=== PATIENT | male | born 1950 | race Hispanic/Latino ===

== ENCOUNTER → 2018-02-28 | Day surgery (SDC) | payer BC, MEDICARE ==
[2018-02-21 15:01] LABS: BASOPHILS % 0.4 % (0.0-1.0); EOSINOPHILS # (AUTO) 0.2 (0.0-0.4); EOSINOPHILS % 4.3 % (0.0-6.0); HEMATOCRIT 37.6 % (38.2-49.6); HEMOGLOBIN 12.6 g/dL (14.0-18.0); LYMPHOCYTES # (AUTO) 1.3 (1.0-3.2); LYMPHOCYTES % 23.6 % (18.0-39.1); MEAN CORPUSCULAR HEMOGLOBIN 32.1 pg (28-32); MEAN CORPUSCULAR HGB CONC 33.5 g/dL (31-35); MEAN CORPUSCULAR VOLUME 95.9 fL (81-99); MONOCYTES # (AUTO) 0.7 (0.2-0.8); MONOCYTES % 12.1 % (4.4-11.3); NEUTROPHILS # (AUTO) 3.3 (2.1-6.9); NEUTROPHILS % 59.2 % (38.7-80.0); PLATELET COUNT 157 x10e3/uL (140-360); RED BLOOD COUNT 3.92 x10e6/uL (4.3-5.7); RED CELL DISTRIBUTION WIDTH 12.3 % (11.7-14.4)
[~2018-02-28] MED LIST: ASPIRIN BUFFER325 M1 PO; FENTANYL CITRATE/PF 100MCG/2 ML INJ ONE; GLIPIZIDE ER2.5 MG PO; GLUCAGON FOR INJ 1 MG VIAL ONE; HYOSCYAMINE SULFATE 0.5 MG/ML INJ ONE; MIDAZOLAM HCL 2 MG/2 ML VIAL ONE; PROPOFOL IV EMULSION 10 MG/ML 50 ML VIAL ONE; QUINAPRIL PO; Z.0.LIPITOR40 MG PO; Z.0.METFORMIN HCL100; Z.0.METOPROLOL SUCC5 PO
[2018-02-28 12:31] VITALS: BP 102/65
--- NOTE | 2018-02-28 13:23 | Operative Report ---
DATE OF PROCEDURE: February 28, 2018 REFERRING PHYSICIAN: Dr. Gerardo Mccoy PROCEDURE PERFORMED: Colonoscopy and polypectomy. INDICATIONS FOR COLONOSCOPY: Surveillance colonoscopy, personal history of colon polyps, mother and brother with colon cancer. MEDICATION: Patient was done under MAC. Please see anesthesiologist's note. PROCEDURE: With the patient in the left lateral decubitus position, the flexible fiberoptic Olympus colonoscope was advanced all the way to the cecum. There was some diverticular disease in the cecum. The scope was then withdrawn slowly. Mucosa overlying the ascending and transverse grossly appeared to be within normal limits. Two polyps were hot biopsied from the descending colon. The sigmoid appeared to be within normal limits. One polyp was hot biopsied from the rectum. The scope was then retroflexed into the distal rectum. Small internal hemorrhoids were noted, none of which was actively bleeding. The scope was then straightened out. It was subsequently withdrawn. Patient tolerated the procedure well. IMPRESSION 1. Cecal diverticulosis. 2. Descending colon polyps x2, hot biopsied. 3. Rectal polyp x1, hot biopsied. 4. Internal hemorrhoids, none actively bleeding. PLAN: Follow up histology. Initiate high-fiber, low-fat diet. Initiate high-fiber supplement. Patient might benefit from a followup colonoscopy in 1 to 2 years considering his strong family history. Job#: [id number] cc:GERARDO MCCOY MD
== END | disposition home or self-care (01) ==
LOC: OR 08:20
PROVIDERS: ATTEND Internal Medicine Gastroenterology
DX: Z09 Encounter for follow-up examination after completed treatment for conditions other than malignant neoplasm (principal); K63.5 Polyp of colon; K62.1 Rectal polyp; K57.30 Diverticulosis of large intestine without perforation or abscess without bleeding; K64.8 Other hemorrhoids; I25.810 Atherosclerosis of coronary artery bypass graft(s) without angina pectoris; I25.2 Old myocardial infarction; I11.0 Hypertensive heart disease with heart failure; I50.9 Heart failure, unspecified; E11.9 Type 2 diabetes mellitus without complications; R00.1 Bradycardia, unspecified; E78.00 Pure hypercholesterolemia, unspecified; F45.8 Other somatoform disorders; Z01.810 Encounter for preprocedural cardiovascular examination; Z01.812 Encounter for preprocedural laboratory examination; Z79.82 Long term (current) use of aspirin; Z79.84 Long term (current) use of oral hypoglycemic drugs; Z95.1 Presence of aortocoronary bypass graft; Z80.0 Family history of malignant neoplasm of digestive organs
CPT/HCPCS: 36415 ×2; 45384; 82948; 85025; 93005; J1610; J1980; J2250; 45378

== ENCOUNTER 2019-01-23 17:06 | Emergency (ER) | payer BC, MEDICARE ==
[~2019-01-23] VITALS: Ht 180.3 cm; Wt 86.2 kg
[~2019-01-23 17:06] MED LIST changes: -FENTANYL CITRATE/PF 100MCG/2 ML INJ ONE; -GLUCAGON FOR INJ 1 MG VIAL ONE; -HYOSCYAMINE SULFATE 0.5 MG/ML INJ ONE; -MIDAZOLAM HCL 2 MG/2 ML VIAL ONE; -PROPOFOL IV EMULSION 10 MG/ML 50 ML VIAL ONE
[2019-01-23] MEDS ORDERED: LIDOCAINE 1% 5ML-MPF INJ ONE (17:15)
[2019-01-23] MEDS ORDERED: LIDOCAINE HCL 1% LOCAL INJ 20 ML VIAL ONE (17:23)
[2019-01-23 17:30] VITALS: BP 170/80
[2019-01-23] MEDS ORDERED: BACITRACIN ZINC 0.9GM TP ONE (17:30)
--- NOTE | 2019-01-23 18:47 | Diagnostic Imaging Report ---
Exam: Right Hand Series. History: Slammed finger in car door, second digit right hand trauma Comparison: None. Findings: 3 views of the right hand. There is normal bone mineralization. No definite acute, displaced fracture or dislocation. Joint spaces are preserved. 6 mm rectangular radiopaque fragment projects in the soft tissues between the distal metaphysis of the second and third metacarpal bones, however, is obscured in the lateral view. No cystic erosive changes.Soft tissue swelling in the second finger. Impression: 1. No definite acute, displaced fracture or dislocation. Soft tissue swelling in the second finger. 2. 6 mm rectangular radiopaque fragment projecting in the soft tissues between the second and third metacarpal bones is indeterminate. This may represent a foreign body or part of the bandaging over the second finger. An avulsed fracture fragment is much less likely. Signed by: Dr. Jerald aLnda M.D. on 01/23/2019 6:44 PM
--- OUTSIDE RECORDS SUMMARY | 2019-01-30 11:54 | XMS REPORT ---
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 Allergies, Adverse Reactions, Alerts This patient has no known allergies or adverse reactions. Medications This patient has no known medications. Results Test Description Test Time Test Comments Text Results Atomic Results Result Comments HAND 3+ VIEWS RIGHT 2019-01-23 18:40:00 [place] [address] Patient Name: CHARANJIT MCKEON MR #: [id number] : 1950 Age/Sex: 68/M Req #: [id number] Adm Physician: Ordered by: MICA NICE DO Report #: [id number] Location: ER Room/Bed: Procedure: [id number] DX/HAND 3+ VIEWS RIGHT Exam Date: 01/23/19 Exam Time: 1750 REPORT STATUS: Signed Exam: Right Hand Series. History: Slammed finger in car door, second digit right hand trauma Comparison: None. Findings: 3 views of the right hand. There is normal bone mineralization. No definite acute, displaced fracture or dislocation. Joint spaces are preserved. 6 mm rectangular radiopaque fragment projects in the soft tissues between the distal metaphysis of the second and third metacarpal bones, however, is obscured in the lateral view. No cystic erosive changes.Soft tissue swelling in the second finger. Impression: 1. No definite acute, displaced fracture or dislocation. Soft tissue swelling in the second finger. 2. 6 mm rectangular radiopaque fragment projecting in the soft tissues between the second and third metacarpal bones is indeterminate. This may represent a foreign body or part of the bandaging over the second finger. An avulsed fracture fragment is much less likely. Signed by: Dr. Malcom Landa M.D. on 01/23/2019 6:44 PM Dictated By: MALCOM LANDA MD Elec tronically Signed By: MALCOM LANDA MD on 01/23/191843 Transcribed By: JOEL on 01/23/191843 COPY TO: MICA NICE DO
== END 2019-01-23 18:29 | disposition home or self-care (01) ==
LOC: ER 17:06
DX: S61.210A Laceration without foreign body of right index finger without damage to nail, initial encounter (principal); W23.1XXA Caught, crushed, jammed, or pinched between stationary objects, initial encounter; Y92.89 Other specified places as the place of occurrence of the external cause; I10 Essential (primary) hypertension; E11.9 Type 2 diabetes mellitus without complications; E78.5 Hyperlipidemia, unspecified; Z95.1 Presence of aortocoronary bypass graft
CPT/HCPCS: 12001; 73130; 99283; J2001

== ENCOUNTER → 2024-10-01 | Outpatient (REF) | payer MEDICARE ==
[~2024-10-01] MED LIST changes: +ASPIRIN325 MG PO; +GLIMEPIRIDE2 MG PO
[2024-10-01 13:39] LABS: BASOPHILS % 0.6 % (0.0-1.0); EOSINOPHILS % 2.2 % (0.0-6.0); LYMPHOCYTES % 20.9 % (18.0-39.1); MONOCYTES % 10.4 % (4.4-11.3); NEUTROPHILS % 65.5 % (38.7-80.0); RED CELL DISTRIBUTION WIDTH 13.1 % (11.7-14.4)
== END ==
LOC: RAD 13:15 → EDSTATUS 10-07 11:30
PROVIDERS: ATTEND Internal Medicine Gastroenterology
DX: Z01.810 Encounter for preprocedural cardiovascular examination (principal); Z01.812 Encounter for preprocedural laboratory examination; Z12.11 Encounter for screening for malignant neoplasm of colon; Z80.0 Family history of malignant neoplasm of digestive organs
CPT/HCPCS: 36415; 85025; 93005